=== PATIENT | male | born 2000 | race Caucasian/White ===

== ENCOUNTER 2019-08-13 15:07 | Emergency (ER) | payer BC ==
[~2019-08-13] VITALS: Ht 172.7 cm; Wt 65.9 kg
[2019-08-13 16:17] VITALS: BP 148/99
[2019-08-13] MEDS ORDERED: DIPHTH,PERTUSS(ACELL),TET TOX 0.5 ML DISP.SYRIN. VAX IM ONE (16:30)
[2019-08-13] MEDS ORDERED: LIDOCAINE 1% PF 2 ML VIAL. INJ ONE (16:30)
[2019-08-13] MEDS ORDERED: NEOMY/BACITR/POLYMYXIN OINT PACKET. TP ONE (16:30)
[2019-08-13] MEDS ORDERED: CEPH500C PO (17:07)
--- NOTE | 2019-08-13 17:08 | PHYS DOC ---
Past Medical History Past Medical History: No Pertinent History Past Surgical History: No Surgical History Smoking Status: Never Smoker Alcohol Use: None Adult General Chief Complaint Chief Complaint: LACERATION/AVULSION HPI HPI Patient is a 19 year old who presents to the emergency department with complaints of a laceration to the posterior surface of his left hand between the PIP and DIP on the third finger. Patient states that he was using IV ketamine windshield out of a car at the [employer] yard where he works when he accidentally cut his finger. He denies any numbness, tingling, weakness, decreased range of motion, or decreased sensation of the affected finger. He currently rates his pain as 0 out of 10 on the pain scale. He is unsure when his last tetanus immunization was. Review of Systems Review of Systems Complete ROS is negative unless otherwise noted in HPI. Current Medications Current Medications Current Medications Medications (Trade) Dose Ordered Sig/Dolly Start Time Stop Time Status Last Admin Dose Admin Diphtheria/ Tetanus/Acell Pertussis (Boostrix) 0.5 ml ONCE ONCE 08/13/19 16:30 08/13/19 16:31 DC 08/13/19 16:40 0.5 ML Lidocaine HCl (Xylocaine-Mpf 1% 2ml Vial) 4 ml 1X ONCE 08/13/19 16:30 08/13/19 16:31 DC 08/13/19 16:38 4 ML Neomycin/ Polymyxin/ Bacitracin (Triple Antibiotic Ointment) 1 pkt 1X ONCE 08/13/19 16:30 08/13/19 16:31 DC 08/13/19 16:38 1 PKT Allergies Allergies Allergies Coded Allergies Type Severity Reaction Last Updated Verified No Known Drug Allergies 08/13/19 No Physical Exam Physical Exam See Above Constitutional: Well developed, well nourished, no acute distress, non-toxic appearance. [] HENT: Normocephalic, atraumatic, bilateral external ears normal, nose normal. [ ] Eyes: PERRLA, EOMI, conjunctiva normal, no discharge. [] Neck: Normal range of motion, no stridor. [] Cardiovascular:Heart rate regular rhythm Lungs & Thorax: Respirations even and unlabored, no retractions, no respiratory distress Skin: Warm, dry, no erythema, no rash. ; 1.5 cm horizontal laceration noted to the posterior surface of the left hand third digit proximal to the PIP, bleeding controlled bandage applied by patient. No visible foreign body Extremities: Left hand third digit: No bony tenderness to palpation, full extension and flexion noted, no cyanosis, no clubbing, ROM intact, no edema. [] Neurologic: Alert and oriented X 3, no focal deficits noted. [] Psychologic: Affect normal, judgement normal, mood normal. [] Current Patient Data Vital Signs Vital Signs Date Time Temp Pulse Resp B/P (MAP) Pulse Ox O2 Delivery O2 Flow Rate FiO2 08/13/19 16:17 97.7 91 18 148/99 (115) 100 Room Air 97.7 EKG EKG [] Radiology/Procedures Radiology/Procedures Laceration Repair by me: Anesthesia: 1% lidocaine locally Location: Third digit of left hand Tendon/Joint/Nerves: No injury Foreign body: None detected after copious irrigation and exploration was 250 ml of normal saline Technique: 4 Simple Interrupted Sutures with 4-0 Ethilon Complexity: No subcutaneous sutures/mucosal repair/edge excision Post Closure Length: 1.5 cm Patient's bleeding was easily controlled in the department and there is no indication of anemia. No evidence of compartment syndrome, neurologic injury, vascular injury, open joint, tendon laceration, or foreign body. Patient is appropriate for outpatient follow up. Course & Med Decision Making Course & Med Decision Making Pertinent Labs and Imaging studies reviewed. (See chart for details) [] Dragon Disclaimer Dragon Disclaimer This electronic medical record was generated, in whole or in part, using a voice recognition dictation system. Departure Departure Impression: Primary Impression: Laceration of finger of left hand without foreign body without damage to nail Additional Impression: Need for Tdap vaccination Disposition: 01 HOME, SELF-CARE Condition: STABLE Referrals: NO PCP (PCP) Patient Instructions: Laceration Care, Adult, [id number], VIS, Tetanus, Diphtheria (Td); Tetanus, Diphtheria, Pertussis (Tdap) - CDC Additional Instructions: Keep the area clean and dry. You may take Tylenol or ibuprofen as needed for pain. Keep the dressing that was placed today on for 24 hours then change the dressing twice a day and apply antibiotic ointment to the area. Wear the finger splint that was applied until sutures have been removed. Follow-up with your primary care doctor, or return to the emergency room in 10-14 days to have the sutures removed, sooner if you develop signs of infection including: redness, warmth, drainage, or a fever. Scripts Cephalexin (CEPHALEXIN) 500 Mg Capsule 1 CAP PO BID for 7 Days, #14 CAP 0 Refills Prov: ISIDRO CABRALES APRN 08/13/19 Problem Qualifiers Primary Impression: Laceration of finger of left hand without foreign body without damage to nail Encounter type: initial encounter Finger: middle finger Qualified Codes: S61.213A - Laceration without foreign body of left middle finger without damage to nail, initial encounter ISIDRO CABRALES APRN Aug 13, 2019 17:08
== END 2019-08-13 17:32 | disposition home or self-care (01) ==
LOC: ER 15:07
DX: S61.213A Laceration without foreign body of left middle finger without damage to nail, initial encounter (principal); Z23 Encounter for immunization; W26.8XXA Contact with other sharp object(s), not elsewhere classified, initial encounter; Y93.89 Activity, other specified; Y92.89 Other specified places as the place of occurrence of the external cause; Y99.8 Other external cause status
CPT/HCPCS: 12001; 90471; 90715; 99283